=== PATIENT | female | born 1995 | race Two or more races ===

== ENCOUNTER 2019-01-17 21:25 | Emergency (ER) | payer MEDICAID ==
[~2019-01-17] VITALS: Ht 157.5 cm; Wt 81.6 kg
--- NOTE | 2019-01-17 21:31 | NUR ---
ED Nurse Note: Pt ambulated to ED from home c/o 01/04 headache since yesterday, also reports minor cough. Denies fever or any other symptoms. Pt is A&Ox4, VSS
[2019-01-17 21:32] VITALS: BP 140/92
[2019-01-17] MEDS ORDERED: IBUPROFEN600 MG ORAL (21:48)
[2019-01-17] MEDS ORDERED: PSEUDOEPHEDRINE60 MG PO (21:48)
[2019-01-17] MEDS ORDERED: ZITHROMAX250 MG ORAL (21:48)
--- NOTE | 2019-01-17 21:49 | Emergency Room Report ---
History of Present Illness General Chief Complaint: Headache Source: Patient Present Illness HPI Is a 23-year-old female with no past medical history. She presents with chief complaint of headache. 3 days throbbing in nature. Mostly behind her face. [id number] medication not helping. She also has congestion and slight cough. [place] like her ear is popping. Worse when she bends over. Feels some dizziness when she does that. Denies any other complaint. No focal deficit. No slurred speech. Allergies: Coded Allergies: No Known Allergies (Unverified , 01/17/19) Patient History Past Medical History: see triage record, old chart reviewed Past Surgical History: none Pertinent Family History: none Social History: Denies: smoking Last Menstrual Period: pt on her cycle Now: No Immunizations: other Reviewed Nursing Documentation: PMH: Agreed; PSxH: Agreed Nursing Documentation-PMH Past Medical History: No Stated History Review of Systems Eye: Denies: eye pain, blurred vision ENT: Reports: nose congestion; Denies: ear pain, throat swelling Respiratory: Reports: cough; Denies: shortness of breath Cardiovascular: Denies: chest pain, palpitations Gastrointestinal: Denies: abdominal pain, diarrhea, nausea, vomiting Musculoskeletal: Denies: back pain, joint pain Skin: Denies: rash Neurological: Reports: headache; Denies: numbness Endocrine: Denies: increased thirst, increased urine Hematologic/Lymphatic: Denies: easy bruising All Other Systems: negative except mentioned in HPI Physical Exam Vital Signs Date Time Temp Pulse Resp B/P (MAP) Pulse Ox O2 Delivery O2 Flow Rate FiO2 01/17/19 21:31 98.6 83 18 140/92 (108) 98 Room Air Vitals normal Sp02 EP Interpretation: reviewed, normal General Appearance: well appearing, no apparent distress, alert Head: normocephalic, atraumatic Eyes: bilateral eye PERRL, bilateral eye EOMI ENT: hearing grossly normal, normal pharynx, other - Left TM with fluids Neck: full range of motion, supple, no meningismus Respiratory: chest non-tender, lungs clear, normal breath sounds Cardiovascular #1: regular rate, rhythm, no murmur Gastrointestinal: normal bowel sounds, non tender, no mass, no organomegaly, no bruit, non-distended Musculoskeletal: back normal, gait/station normal, normal range of motion Psychiatric: mood/affect normal Medical Decision Making Diagnostic Impression: Primary Impression: Headache Qualified Codes: G44.209 - Tension-type headache, unspecified, not intractable Additional Impressions: URI (upper respiratory infection) Qualified Codes: J06.9 - Acute upper respiratory infection, unspecified Left otitis media Qualified Codes: H66.92 - Otitis media, unspecified, left ear ER Course This patient presents with URI and secondary otitis media. She also with headache. This is probably a sinus headache. No evidence of meningitis, sepsis , pneumonia to name a few. No evidence of meningitis or neoplastic process. Last Vital Signs Date Time Temp Pulse Resp B/P (MAP) Pulse Ox O2 Delivery O2 Flow Rate FiO2 01/17/19 21:32 98.6 18 140/92 98 Room Air 01/17/19 21:31 83 Status: improved Disposition: HOME, SELF-CARE Condition: Stable Scripts Azithromycin* (ZITHROMAX*) 250 Mg Tablet 250 MG ORAL DAILY, #6 TAB 0 Refills Take two tables once daily for 1 day, then one tablet once daily for 4 days. Prov: Pramod Batres MD 01/17/19 Pseudoephedrine Hcl* (SUDAFED*) 60 Mg Tablet 60 MG PO Q6H, #30 TAB Prov: Pramod Batres MD 01/17/19 Ibuprofen* (MOTRIN*) 600 Mg Tablet 600 MG ORAL THREE TIMES A DAY, #30 TAB 0 Refills Prov: Pramod Batres MD 01/17/19 Patient Instructions: Sinus Headache Additional Instructions: Increase fluids. Follow-up with your doctor in 7 days but return if worse. Pramod Batres MD Jan 17, 2019 21:49
[2019-01-17 22:05] VITALS: BP 140/92
--- NOTE | 2019-01-17 22:05 | NUR ---
ER DISCHARGE NOTE: Patient is cleared to be discharged per ERMD, pt is aox4, on room air, with stable vital signs. pt was given dc and prescription instructions, pt was able to verbalize understanding, pt id band removed. pt is able to ambulate with steady gait. pt took all belongings.
== END 2019-01-17 22:05 | disposition home or self-care (01) ==
LOC: EMR 21:38
DX: G44.209 Tension-type headache, unspecified, not intractable (principal); J06.9 Acute upper respiratory infection, unspecified; H66.92 Otitis media, unspecified, left ear
CPT/HCPCS: 99282

== ENCOUNTER 2019-05-15 01:18 | Emergency (ER) | payer MEDICAID, OTHER ==
[~2019-05-15] VITALS: Ht 157.5 cm; Wt 81.6 kg
[~2019-05-15 01:18] MED LIST: IBUPROFEN600 MG ORAL; PSEUDOEPHEDRINE60 MG PO; ZITHROMAX250 MG ORAL
--- NOTE | 2019-05-15 01:27 | NUR ---
ED Nurse Note: Pt ambulated to ED from home c/o 12/05 uterine cramping, radiating to upper back, heartburn and weakness in arms since 2299. Pt took ibuprofen and reports pain is lessened. Pt stopped taking control last month.. VSS. urine sent
[2019-05-15 01:35] VITALS: BP 136/92
--- NOTE | 2019-05-15 01:41 | Emergency Room Report ---
History of Present Illness General Chief Complaint: Pain Source: Patient Present Illness HPI This is a 23-year-old female with no past medical history. She presents with chief complaint of abdominal pain with arm pain and shoulder pain. She says she was getting cramps but it got really severe where her arm and back was hurting also. She felt very nauseous but no vomiting. Mom got concerned and told her to go to hospital. Patient says she felt better now. No fever chills but no vomiting no diarrhea. She took ibuprofen and it helped. Denies any trauma. Allergies: Coded Allergies: No Known Allergies (Unverified , 01/17/19) Patient History Past Medical History: see triage record, old chart reviewed Past Surgical History: none Pertinent Family History: none Social History: Denies: smoking Last Menstrual Period: currently on period Now: No Immunizations: other Reviewed Nursing Documentation: PMH: Agreed; PSxH: Agreed Nursing Documentation-PMH Past Medical History: No Stated History Review of Systems Eye: Denies: eye pain, blurred vision ENT: Denies: ear pain, nose congestion, throat swelling Respiratory: Denies: cough, shortness of breath Cardiovascular: Denies: chest pain, palpitations Gastrointestinal: Reports: abdominal pain, nausea; Denies: diarrhea, vomiting Musculoskeletal: Reports: joint pain, muscle pain; Denies: back pain Skin: Denies: rash Neurological: Denies: headache, numbness Endocrine: Denies: increased thirst, increased urine Hematologic/Lymphatic: Denies: easy bruising All Other Systems: negative except mentioned in HPI Physical Exam Vital Signs Date Time Temp Pulse Resp B/P (MAP) Pulse Ox O2 Delivery O2 Flow Rate FiO2 05/15/19 01:21 98.4 80 16 136/92 (107) 97 Room Air Vitals normal Sp02 EP Interpretation: reviewed, normal General Appearance: well appearing, no apparent distress, alert Head: normocephalic, atraumatic Eyes: bilateral eye PERRL, bilateral eye EOMI ENT: hearing grossly normal, normal pharynx Neck: full range of motion, supple, no meningismus Respiratory: chest non-tender, lungs clear, normal breath sounds Cardiovascular #1: regular rate, rhythm, no murmur Gastrointestinal: non tender, no mass, no organomegaly, no bruit, non-distended , abnormal bowel sounds - hyperactive gurgling sounds Musculoskeletal: back normal, normal range of motion, gait/station normal Psychiatric: mood/affect normal Medical Decision Making Diagnostic Impression: Primary Impression: Abdominal pain Qualified Codes: R10.84 - Generalized abdominal pain ER Course Patient with abdominal pain. No evidence of acute abdomen or obstruction. Better now. Will discharge home. Last Vital Signs Date Time Temp Pulse Resp B/P (MAP) Pulse Ox O2 Delivery O2 Flow Rate FiO2 05/15/19 01:35 98.4 80 16 136/92 97 Room Air Status: improved Disposition: HOME, SELF-CARE Condition: Stable Scripts Ibuprofen* (MOTRIN*) 600 Mg Tablet 600 MG ORAL THREE TIMES A DAY, #30 TAB 0 Refills Prov: Pramod Batres MD 05/15/19 Referrals: [facility] (PCP) Additional Instructions: Increase fluids. Follow-up with your doctor in 7 days. Return if worse. Pramod Batres MD May 15, 2019 01:41
--- NOTE | 2019-05-15 01:47 | NUR ---
ED Nurse Note: Blood sent down to lab
[2019-05-15 01:55] LABS: BILIRUBIN, URINE NEGATIVE (NEGATIVE); COLOR,URINE PALE YELLOW; GLUCOSE, URINE (UA) NEGATIVE (NEGATIVE); KETONES,URINE NEGATIVE (NEGATIVE); LEUKOCYTE ESTERASE ,URINE 1+ (NEGATIVE); NITRITE,URINE NEGATIVE (NEGATIVE); PH,URINE 7 (4.5-8.0); PROTEIN,URINE 1+ (NEGATIVE); UROBILINOGEN,URINE 1 MG/DL (0.0-1.0)
[2019-05-15 01:59] LABS: BASOPHILS % (AUTO) 2.4 % (0.0-2.0); EOSINOPHILS % (AUTO) 4.4 % (0.0-3.0); HEMATOCRIT 40.9 % (37.0-47.0); HEMOGLOBIN 14.6 G/DL (12.0-16.0); LYMPHOCYTES % (AUTO) 28.9 % (20.0-45.0); MEAN CORPUSCULAR VOLUME 90 FL (80-99); MONOCYTES % (AUTO) 7.9 % (1.0-10.0); NEUTROPHILS % (AUTO) 56.4 % (45.0-75.0); PLATELET COUNT 272 K/UL (150-450); RED BLOOD COUNT 4.54 M/UL (4.20-5.40); RED CELL DISTRIBUTION WIDTH 10.8 % (11.6-14.8); WHITE BLOOD COUNT 8.8 K/UL (4.8-10.8)
[2019-05-15 02:03] LABS: ANION GAP 8 mmol/L (5-15); BLOOD UREA NITROGEN 12 mg/dL (7-18); CALCIUM 9.2 MG/DL (8.5-10.1); CARBON DIOXIDE 29 MMOL/L (21-32); CHLORIDE 104 MMOL/L (98-107); CREATININE 0.7 MG/DL (0.55-1.30); POTASSIUM 3.6 MMOL/L (3.5-5.1); SODIUM 141 MMOL/L (136-145)
[2019-05-15 02:03] LABS: APPEARANCE,URINE SLIGHTLY CLOUDY
[2019-05-15 02:08] LABS: ALANINE AMINOTRANSFERASE 64 U/L (12-78); ALBUMIN/GLOBULIN RATIO 1.1 (1.0-2.7); ALKALINE PHOSPHATASE 78 U/L (46-116); ASPARTATE AMINO TRANSFERASE 35 U/L (15-37); BILIRUBIN,TOTAL 0.5 MG/DL (0.2-1.0)
[2019-05-15] MEDS ORDERED: IBUPROFEN600 MG ORAL (02:15)
[2019-05-15 02:20] VITALS: BP 136/92
--- NOTE | 2019-05-15 02:20 | NUR ---
ER DISCHARGE NOTE: Patient is cleared to be discharged per ERMD, pt is aox4, on room air, with stable vital signs. pt was given dc and prescription instructions, pt was able to verbalize understanding, pt id band removed without complications. pt is able to ambulate with steady gait. pt took all belongings.
== END 2019-05-15 02:20 | disposition home or self-care (01) ==
LOC: EMR 01:34
DX: R10.84 Generalized abdominal pain (principal); R11.0 Nausea; M79.603 Pain in arm, unspecified; M25.519 Pain in unspecified shoulder
CPT/HCPCS: 36415; 80053; 81001; 81025; 85025; Z7502; 99283